=== PATIENT | female | born 1990 | race African-American/Black ===

== ENCOUNTER 2021-04-02 18:19 | Emergency (ER) | payer MEDICAID ==
[~2021-04-02] VITALS: Ht 165.1 cm; Wt 67.3 kg
[2021-04-02 18:32] VITALS: BP 122/74
--- NOTE | 2021-04-02 18:37 | NUR ---
PT SEEN BY ER PA IN TRIAGE.
[2021-04-02 18:59] LABS: BASOPHILS % (AUTO) 1 % (0-1); EOSINOPHILS % (AUTO) 1 % (1-7); LYMPHOCYTES % (AUTO) 35 % (22-44); MEAN CORPUSCULAR HEMOGLOBIN 31.4 pg (27.0-34.8); MEAN CORPUSCULAR HGB CONC 34.2 g/dL (32.4-35.8); MEAN PLATELET VOLUME 8.3 fL (7.4-10.4); MONOCYTES % (AUTO) 7 % (2-9); NEUTROPHILS % (AUTO) 56 % (42-75); PLATELET COUNT 283 x10^3/uL (130-400); RED BLOOD COUNT 4.45 x10^6/uL (3.82-5.3); RED CELL DISTRIBUTION WIDTH 12.9 % (9.6-15.2)
[2021-04-02 19:04] LABS: MD NO
[2021-04-02 19:08] LABS: ALANINE AMINOTRANSFERASE 18 U/L (12-78); ALBUMIN 3.6 g/dL (3.4-5.0); ANION GAP 6 mmol/L (5-15); CALCIUM 8.5 mg/dL (8.5-10.1); CHLORIDE 109 mmol/L (98-107); CREATININE 0.76 mg/dL (0.55-1.02)
[2021-04-02 19:25] LABS: ALKALINE PHOSPHATASE 51 U/L (45-117); BILIRUBIN,TOTAL 0.5 mg/dL (0.2-1.0); TOTAL PROTEIN 7.3 g/dL (6.4-8.2)
--- NOTE | 2021-04-02 20:00 | NUR ---
NIL X1 CURRENTLY.
--- NOTE | 2021-04-02 20:15 | NUR ---
PT ARRIVED TO ROOM, NO ACUTE DISTRESS AND IN WHEELCHAIR, AFTER HAVING HER ULTRASOUND DONE. PT A&OX4, IN BED, ON CR MONITOR, SIDERAILS UP X2 AND CALL LIGHT WITHIN REACH. WAITING ON ULTRASOUND RESULTS, ALL OTHER RESULTS ARE BACK.
--- NOTE | 2021-04-02 20:55 | NUR ---
REPORT RECEIVED FROM WENDY RN. ASSUMING CARE AT THIS TIME. PT UP FOR RECHECK.
--- NOTE | 2021-04-02 21:04 | NUR ---
PT STATES SHE PROVIDED URINE SAMPLE PREVIOUSLY. LAB DOES NOT HAVE HER URINE SAMPLE. PT REFUSES TO PROVIDE ANOTHER URINE SAMPLE. PT STATES "JUST WAITING FOR DR TO GO OVER RESULTS THAT ARE ALREADY DONE". PT SITTING ON EDGE OF GURENY. PAULSON. Addendum: 04/02/21 at 2108 by [email or web address] PT REMOVED ALL MONITORING. PT FULLY DRESSED.
== END 2021-04-02 21:51 | disposition home or self-care (01) ==
LOC: ED 21:35
DX: O26.891 Other specified pregnancy related conditions, first trimester (principal); R11.0 Nausea; J45.909 Unspecified asthma, uncomplicated; R07.89 Other chest pain; R06.02 Shortness of breath; Z3A.01 Less than 8 weeks gestation of pregnancy
CPT/HCPCS: 36415; 71046; 76801; 80053; 84702; 85025; 86901; 93005; 99285

== ENCOUNTER 2021-06-09 19:33 | Emergency (ER) | payer MEDICAID ==
[~2021-06-09] VITALS: Ht 165.1 cm; Wt 70.8 kg
--- NOTE | 2021-06-09 21:09 | NUR ---
REPORT TO JAMIE HOLDEN.
--- NOTE | 2021-06-09 21:11 | NUR ---
REPORT FROM HANANE AYALA
[2021-06-09 21:34] LABS: BASOPHILS % (AUTO) 0 % (0-1); EOSINOPHILS % (AUTO) 1 % (1-7); LYMPHOCYTES % (AUTO) 28 % (22-44); MEAN CORPUSCULAR HEMOGLOBIN 31.8 pg (27.0-34.8); MEAN CORPUSCULAR HGB CONC 34.9 g/dL (32.4-35.8); MEAN PLATELET VOLUME 8.5 fL (7.4-10.4); MONOCYTES % (AUTO) 6 % (2-9); NEUTROPHILS % (AUTO) 65 % (42-75); PLATELET COUNT 210 x10^3/uL (130-400); RED BLOOD COUNT 3.57 x10^6/uL (3.82-5.3); RED CELL DISTRIBUTION WIDTH 13.5 % (9.6-15.2)
[2021-06-09] MEDS ORDERED: RHOGAM FROM BLOOD BANK 1 NOTE EA IM/IV ONE (22:00)
--- NOTE | 2021-06-09 22:10 | NUR ---
DR GUNDERSON AT BEDSIDE FOR RECHECK.
[2021-06-09 23:19] VITALS: BP 116/73
[2021-06-09 23:52] VITALS: BP 125/71
--- NOTE | 2021-06-09 23:53 | NUR ---
Patient given discharge instructions and they have confirmed that they understand the instructions. Patient ambulatory with steady gait. NAD, all questions answered appropriately, denies additional needs at this time. No personal belongings left in room after discharge.
== END 2021-06-09 23:54 | disposition home or self-care (01) ==
LOC: ED 21:17
DX: O20.0 Threatened abortion (principal); J45.909 Unspecified asthma, uncomplicated; Z3A.16 16 weeks gestation of pregnancy
CPT/HCPCS: 36415; 76815; 80047; 84702; 85025; 86850; 86900; 96372; 99284; J2790